=== PATIENT | female | born 1995 | race Caucasian/White ===

== ENCOUNTER 2018-12-17 22:51 | Outpatient (CLI) | payer OTHER ==
[~2018-12-17] VITALS: Ht 165.1 cm; Wt 89.9 kg
[2018-12-17 23:15] VITALS: BP 118/72
[2018-12-17] MEDS ORDERED: HEAL1TAB PO (23:31)
[2018-12-17] MEDS ORDERED: UNIS25TA5 PO (23:31)
[2018-12-17] MEDS ORDERED: PRENTAB9 PO (23:31)
[2018-12-18] MEDS ORDERED: ACETAMINOPHEN 500 MG TAB PO ONE (00:30)
--- NOTE | 2018-12-18 01:36 | IPNPDOC ---
Text Note Date of Service The patient was seen on 12/18/18. NOTE No records available to review. Eliseo is a 23yo at 35+3wks (MARCIA [id number]) presents for RLQ for the last 4 hours. Constant, worse with laughing, 5-7/10. Reports nausea throughout , and had vomiting x3 in the last 3 hrs. She denies headache, vision changes, RUQ pain, vaginal bleeding, LOF, contractions, fevers. She reports drinking 6 -16oz cups of water today. Denies heavy lifting. Reports just PCS'd here and is currently finishing in processing. She has not tried stretches or medications for relieving factors. VS: Reviewed, normotensive, nontachycardic, afebrile GEN: WNWD, NAD, A&O ABD: Soft, Gravid, TTP on the right low quadrant and right flank, negative peritoneal signs, negative heel-jar test, negative psoas test EXT: No edema, ambulating without difficulty FHT: Reactive, 115bpm, moderate variability, + Accelerations, - Decelerations Bena: quiet Tylenol 1000mg PO x1 PO Hydration A/P: SIUP at 35wks with right side pain, some vomiting. Pain stable with Tylenol. PO Challenged performed and patient able to keep down crackers and juice. Do not suspect Appendicitis, Kidney Stones, issues. Suspect musculoskeletal pain. Patient has abdominal/support brace prescription, will call clinic later today to find out where to obtain brace. Discussed strict return and PTL precautions. Encouraged hydration. Discussed FKC. Provided patient with 24hr quarters. She is to follow up in clinic for scheduled appointment on . All questions answered to patient's apparent satisfaction. DO CRISTIAN Velarde Fishbone, I+O VS, Herlinda, I+O Vital Signs Date Time Temp Pulse Resp B/P (MAP) Pulse Ox O2 Delivery O2 Flow Rate FiO2 12/17/18 23:15 99.6 76 18 118/72 (87) BALDOMERO CUBA DO Dec 18, 2018 01:36
== END 2018-12-18 01:31 | disposition home or self-care (01) ==
LOC: M LDO 22:51
PROVIDERS: ATTEND Obstetrics & Gynecology
DX: O26.893 Other specified pregnancy related conditions, third trimester (principal); R10.31 Right lower quadrant pain; O21.2 Late vomiting of pregnancy; Z3A.35 35 weeks gestation of pregnancy

== ENCOUNTER 2019-01-22 03:10 | Inpatient (IN) | payer OTHER ==
[~2019-01-22] VITALS: Ht 165.1 cm; Wt 93.8 kg
[~2019-01-22 03:10] MED LIST: HEAL1TAB PO; PRENTAB9 PO; UNIS25TA5 PO
[2019-01-22 03:21] VITALS: BP 164/92
[2019-01-22] MEDS ORDERED: OXYTOCIN 30 UNITS IN 0.9% NaCl 500ML IV BAG (J2590) As Ordered ONE (03:24)
[2019-01-22 03:43] VITALS: BP 146/65
[2019-01-22 04:17] VITALS: BP 176/77
[2019-01-22 04:19] VITALS: BP 153/83
--- NOTE | 2019-01-22 04:29 | HPEPDOC ---
Obstetrical History & Physical General Date of Admission Jan 22, 2019 at 03:24 Primary Care Physician: Annette Pa MD History of Present Illness OB Considerations: Uncomplicated SPC Hollis is a 23y/o @ 40+4 wks by LMP c/w 12 wk US (MARCIA [id number]) who presented to labor and delivery who had onset of regular contractions at 0130 this morning, and presented to labor and delivery two hours later and found to be 9cm and had SROM of thin meconium with labor check. She proceeded to have an uncomplicated, unmedicated delivery within 5 minutes of labor check. See delivery summary for full details. Chief Complaint: Contractions, term Information Provided By: Patient Age: 23 : 1 Term: 0 Pre-term: 0 Abortions: 1 Livin Care Care: Good Care Dating Final EDC: Jan 18, 2019 Final EDC for Daily Update: Jan 18, 2019 Final EDC by: 1st trimester (US) LMP: Apr 13, 2018 1st Trimester Date: Jul 12, 2018 Weeks + Days: 12.6 Estimated Date of Confinement: Jul 12, 2018 EGA at Admission: 40.4 Antepartum Course Diagnos(e)s Uncomplicated Height (inches): 65 Pre- weight (lbs.): 175 Admission Weight (lbs.): 206 Change in Weight (lbs.): 31 Past Medical History Past Obstetrical History : Past Obstetrical History: Multigravida (Chemical ) Date of Delivery: Jun 09, 2014 GLASS BREAKER History: Spontaneous Past Medical History Medical History Denies Surgical History: Denies/None Family History Significant Family History: Cancer (Mom with kidney cancer) Social History Marital Status: Single Family situation: Spouse/partner home Psychosocial History: No pertinent psych hx * Smoker: non-smoker Alcohol: Denies Drugs: denies Abuse Violence Screening Have you been hit/kicked/slapp: No Have you been sexually assault: No Imunizations Tdap status: current Influenza Status: needs Allergies Coded Allergies: No Known Allergies (Unverified , 12/17/18) Medications Scheduled B6/FA/B12/Co Q10/Herb No.225 (Healthy Heart Complex Tablet) 1 Each Tablet, 1 TAB PO QHS Doxylamine Succinate (Unisom) 25 Mg Tablet, 25 MG PO QHS No.137/Iron/Folic Acd ( Vitamin Tablet) 1 Each Tablet, 1 TAB PO DAILY Physical Examination Physical Examination GENERAL: Alert and oriented times three. BREAST: . ABDOMEN: Gravid and non-tender to touch. HEART RATE: Regular rate and rhythm. LUNGS: Clear to auscultation (CTA). EXTREMITIES: No edema. Vital Signs/I&O VS: BP 164/92 146/65 176/77 153/83 143/81 HR: 53 RR: 18 T: 98.4 I&O- Last 24 Hours up to 6 AM 01/22/19 06:00 Output Total 100 ml Balance -100 ml Pertinent Laboratoy Data Blood Type: B+ RBC Antibody Screen: Negative HIV: Negative Hepatitis B: Negative Hepatitis C: Unknown Rapid Plasma Reagin: Nonreactive Rubella: Immune Varicella: Immune Chlamydia/Gonorrhea: Negative Group B Streptococcus: Negative Glucose Tolerance Test: 97 Anatomy Ultrasound Ultrasound Date: September 01, 2018 Placenta Location: Posterior Normal Anatomy: Yes Placenta Previa: No Estimated Weight (grams): 346 Steroid Therapy Steroid Therapy: No Vaginal Examination Dilation: complete Effacement: 100% Station: +3 Presentation: Cephalic presentation Position: Vertex (occiput) Assessment Variability: Moderate Accelerations: None Decelerations: Prolonged Heart Patterns: Bradycardia Tocometer Contractions: Yes Frequency: every 1-3 min. Duration: greater than 60 seconds Strength: palpated as strong Multi-drug resistant Organism: No history of MDRO Assessment/Plan Assessment 23y/o [id number] s/p uncomplicated . Plan Admit and orient. House Superintendent and consent. Diet: Regular Group B Streptococcus (GBS) negative. -IM Pitocin given -Mild range BPs, will draw CBC, CMP, type and screen -Routine care Labor and Delivery Counseling Patient precipitously delivering. Discussed lacerations and need for repair with absorbable sutures. Discussed possible need for blood transfusion with risks of transfusion reaction or blood borne illness such as HIV/Hepatitis. Patient agrees to transfusion, if indicated. Annette Pa MD Jan 22, 2019 04:29
[2019-01-22] MEDS ORDERED: ACETAMINOPHEN 500 MG TAB PO PRN (04:30)
[2019-01-22] MEDS ORDERED: METHYLERGONOVINE MALEATE 0.2 MG TAB PO PRN (04:30)
[2019-01-22] MEDS ORDERED: RHOGAM 300 MCG (1500 IU) INJ (J2790) IM SCH (04:30)
[2019-01-22] MEDS ORDERED: MEASLES,MUMPS,RUBELLA VACCINE INJ (MMR-II) (90707) SC SCH (04:30)
[2019-01-22] MEDS ORDERED: DIBUCAINE 1% OINTMENT 30GM TOP PRN (04:30)
[2019-01-22] MEDS ORDERED: OXYTOCIN INJ 10 UNITS/ML VIAL (J2590) IM ONE (04:30)
--- NOTE | 2019-01-22 04:40 | DNPDOC ---
[facility] Delivery Note Delivery Note DATE OF DELIVERY: 22Jan2019 PREDELIVERY DIAGNOSIS: 40+4 weeks' gestation and labor. POST DELIVERY DIAGNOSIS: Delivered. PROCEDURE: Spontaneous vaginal delivery. TIE WORKER: Dr. Pa ANESTHESIA: Local only for repair ESTIMATED BLOOD LOSS: 100 mL. FINDINGS: 7 pound 1 ounce 3200 infant, Score 9/9, nuchal cord not present. DELIVERY SUMMARY: 23y/o @ 40+4 wks with onset of contractions at 0130 this morning, presented at 9cm with SROM thin meconium stained fluid with labor check. FHR initially 110, with prolonged deceleration of 4 minutes to 70s just prior to delivery. Within 5 minutes of labor check, I entered the room with vertex parting the labia. Shortly thereafter, infant delivered OA, restituted ROT. The left anterior shoulder delivered with downward tractions and right posterior shoulder delivered with upward guidance. The body followed easily. vigorous with spontaneous cry, and was placed to maternal abdomen. Cord blood collected per routine. Placenta delivered intact, 3vc, central insertion. 10u IM Pitocin were administered as patient did not have an IV. Systematic examination of the perineum was notable for 1st degree perineal laceration and bilateral labial lacerations. 1% lidocaine without epinephrine (10cc) was administered for local anesthesia. Repair completed with 3-0 Vicryl in the usual fashion. Mother and were stable when provider left the room. EBL 100cc. Annette Pa MD Jan 22, 2019 04:40
[2019-01-22] MEDS: IBUPROFEN 800 MG TAB PO PRN ×2 (04:54→20:49)
[2019-01-22 05:16] LABS: HEMATOCRIT 35.4 % (36.0-47.0); HEMOGLOBIN 12.6 g/dl (12.0-15.5); MEAN CORPUSCULAR HEMOGLOBIN 33.4 pg (27.0-33.0); MEAN CORPUSCULAR HGB CONC 35.6 g/dl (32.0-36.5); MEAN CORPUSCULAR VOLUME 93.9 fl (80.0-96.0); PLATELET COUNT, AUTOMATED 214 10^3/uL (150-450); RED BLOOD COUNT 3.77 10^6/uL (4.00-5.40); WHITE BLOOD COUNT 9.8 10^3/uL (4.0-10.0)
[2019-01-22 05:46] LABS: ALT/SGPT 13 U/L (12-78); BILIRUBIN,TOTAL 0.3 MG/DL (0.2-1.0); GLOMERULAR FILTRATION RATE > 60.0 (>60); LDH LACTATE DEHYDROGENASE 209 U/L (84-246); URIC ACID 4.4 MG/DL (2.6-6.0)
[2019-01-22] MEDS: PRENATAL VITAMINS CHEWABLE TABLET PO SCH (09:46)
[2019-01-22 11:00] LABS: HEPATITIS B SURFACE ANTIGEN NEGATIVE (NEGATIVE)
[2019-01-22] MEDS ORDERED: LIDOCAINE 1% MDV 20ML VIAL As Ordered ONE (11:17)
[2019-01-22 18:00] VITALS: BP 139/84
[2019-01-22] MEDS: DOCUSATE SODIUM 100 MG CAP PO PRN (20:12)
[2019-01-23 06:30] VITALS: BP 137/69
--- NOTE | 2019-01-23 07:58 | IPNPDOC ---
Progress Note Date of Service: Jan 23, 2019 Day#: 1 Progress Note SUBJECT: patient is a 23 yo [id number] s/p ppd#1. She has no concerns this am. She has been ambulating, voiding spontaneously without issue and tolerating regular diet. Breast feeding without issue. Reports lochia is like a normal period. patient is undecided on contraceptive options at this point. OBJECTIVE: VITAL SIGNS: Within normal limits, afebrile. Alert and oriented times three. Abdomen: Fundus firm at U-2. Soft, NTTP. LE: no edema/erythema/tenderness A/P: ppd #1, doing well. contraceptive counseling. encourage bf. instruction to pick pack worker medications at [facility]. anticipate d/c home PPD #2. VS, I&O, 24H, Fishbone Vital Signs/I&O Vital Signs Date Time Temp Pulse Resp B/P (MAP) Pulse Ox O2 Delivery O2 Flow Rate FiO2 01/23/19 06:30 97.4 53 18 137/69 (91) 98 Laboratory Data 24H LABS Laboratory Tests 2 01/22/19 21:05: Serology Scanned Report Hepatitis B Testing PAOLO STEVENS DO Jan 23, 2019 07:58
[2019-01-23] MEDS: PRENATAL VITAMINS CHEWABLE TABLET PO SCH (09:46)
[2019-01-23] MEDS: ACETAMINOPHEN TAB 650MG DOSE (2X325MG) PO PRN ×2 (13:47→19:33)
[2019-01-23] MEDS: IBUPROFEN 800 MG TAB PO PRN (13:47)
[2019-01-23 18:01] VITALS: BP 140/81
[2019-01-23] MEDS: DOCUSATE SODIUM 100 MG CAP PO PRN (19:45)
[2019-01-23] MEDS: IBUPROFEN 600 MG TAB PO PRN (21:04)
[2019-01-24] MEDS: ACETAMINOPHEN TAB 650MG DOSE (2X325MG) PO PRN (03:43)
[2019-01-24 06:00] VITALS: BP 140/66
[2019-01-24] MEDS: IBUPROFEN 600 MG TAB PO PRN (06:01)
[2019-01-24] MEDS ORDERED: COLA100C5 PO (07:15)
[2019-01-24] MEDS ORDERED: IBUP80TA PO (07:15)
[2019-01-24] MEDS ORDERED: ACET-683 PO (07:15)
[2019-01-24] MEDS ORDERED: DIBU10OI TOP (07:15)
[2019-01-24] MEDS: PRENATAL VITAMINS CHEWABLE TABLET PO SCH (07:42)
[2019-01-24] MEDS ORDERED: INFLUENZA QUADRIVALENT PF VACCINE 0.5ML SYRINGE (90686) IM ONE (09:00)
--- NOTE | 2019-01-24 13:04 | DSES ---
DATE OF ADMISSION: 01/22/2019 DATE OF DISCHARGE: 01/24/2019 This lady is a 23-year-old 2 now para 1 admitted at 40 weeks and 4 days with contractions, had a precipitous delivery, live female infant weighing 7 pounds 1 ounce, 3200 grams, scores of nine and nine at 1 and 5 minutes respectively. She had a small first-degree tear which was repaired with local anesthetic. On her first day we discussed phlebitis, cystitis, mastitis, endometritis and cellulitis, diet, exercise pain management, perineal, breast and wound care. She is undecided yet as regarding control. Her admitting hemoglobin was 12.6, hematocrit 34.5 and platelets were 214. Her vital signs on discharge her blood pressure was 140/66, respirations 16, pulse 77, temperature 98.3. The rest of the examination unremarkable. Normocephalic, atraumatic. Neck full range of motion. Pupils equal and reactive to light. Distal pulses symmetric. No evidence of DVT, PE or superficial phlebitis. Chest is clear bilaterally bases. No wheezes or rhonchi. No CVA tenderness. Abdomen soft, uterus 2 below. Lochia is moderate. Four quadrant bowel sounds are noted. She has no incontinency, urgency or frequency. No nausea, vomiting, diarrhea or constipation. No complaints of shortness of breath, dyspnea on exertion and no chest pain. In summary, we have a term gestation, rapid delivery at 40 and 4 weeks of gestation. Both mother and baby will be discharged to followup in 6 weeks for checkup at [facility]. edited: 01/25/2019 0728 lisette SHIPLEY
== END 2019-01-24 12:45 | disposition home or self-care (01) | DRG 807 ==
LOC: M LDO 03:10 → M LDI 03:24 → M OBS 05:58
PROVIDERS: ADMIT Obstetrics & Gynecology; ATTEND Obstetrics & Gynecology
PROC: 10E0XZZ Delivery of Products of Conception, External Approach (ICD-10-PCS; principal; 2019-01-22)
PROC: 0HQ9XZZ Repair Perineum Skin, External Approach (ICD-10-PCS; 2019-01-22)
DX: O62.3 Precipitate labor (principal); Z37.0 Single live birth; Z3A.40 40 weeks gestation of pregnancy; O48.0 Post-term pregnancy; O70.0 First degree perineal laceration during delivery; O77.0 Labor and delivery complicated by meconium in amniotic fluid; O76 Abnormality in fetal heart rate and rhythm complicating labor and delivery

== ENCOUNTER 2019-05-14 04:25 | Emergency (ER) | payer OTHER ==
[~2019-05-14] VITALS: Ht 165.1 cm; Wt 73.5 kg
[~2019-05-14 04:25] MED LIST changes: +ACET-683 PO; +COLA100C5 PO; +DIBU10OI TOP; +IBUP80TA PO
[2019-05-14] MEDS ORDERED: CALC500C16 PO (04:34)
[2019-05-14] MEDS ORDERED: DICL1GEL3 TOP (04:34)
[2019-05-14] MEDS ORDERED: NS 1,000 ML IV ONE ×2 (05:00→05:30)
[2019-05-14] MEDS ORDERED: METOCLOPRAMIDE INJ 10MG/2ML VIAL (J2765) IV ONE (05:00)
[2019-05-14 05:10] LABS: BASO % 0.1 % (0.0-1.0); EOS % 0.1 % (0.0-3.0); HEMATOCRIT 51.6 % (36.0-47.0); HEMOGLOBIN 17.3 g/dl (12.0-15.5); LYMPH # 0.5 10^3/uL (1.5-5.0); LYMPH % 5.1 % (24.0-44.0); MEAN CORPUSCULAR HEMOGLOBIN 30.2 pg (27.0-33.0); MEAN CORPUSCULAR HGB CONC 33.5 g/dl (32.0-36.5); MEAN CORPUSCULAR VOLUME 90.2 fl (80.0-96.0); MONO # 0.3 10^3/uL (0.0-0.8); MONO % 3.5 % (0.0-5.0); NEUTROPHILS # 8.4 10^3/uL (1.5-8.5); PLATELET COUNT, AUTOMATED 287 10^3/uL (150-450); RED BLOOD COUNT 5.72 10^6/uL (4.00-5.40); WHITE BLOOD COUNT 9.3 10^3/uL (4.0-10.0)
[2019-05-14 05:52] LABS: BILIRUBIN,DIRECT 0.3 MG/DL (0.0-0.2); BILIRUBIN,TOTAL 0.9 MG/DL (0.2-1.0)
[2019-05-14] MEDS ORDERED: REGL10TA6 PO (06:33)
[2019-05-14 07:06] VITALS: BP 121/73
== END 2019-05-14 07:06 | disposition home or self-care (01) ==
LOC: M ED 04:25
DX: K52.9 Noninfective gastroenteritis and colitis, unspecified (principal)
CPT/HCPCS: 80047; 80076; 83690; 84702; 85025; 96361; 96374; 99284; J2765

== ENCOUNTER → 2020-12-08 | Outpatient (CLI) | payer OTHER ==
[~2020-12-08] MED LIST changes: +CALC500C16 PO; -DIBU10OI TOP; +DIBU28OI2 TOP; +DICL1GEL3 TOP; +REGL10TA6 PO
--- NOTE | 2020-12-08 12:12 | REP ---
INDICATION: GROWTH, CHRONIC HTN. COMPARISON: None. TECHNIQUE: Real-time sonographic evaluation of the gravid uterus performed. FINDINGS: Estimated gestational age is28 weeks 0 days, EDC 03/02/2021. Today's measurements indicate appropriate growth. Presentation: Cephalic Placenta anterior to the left, grade 0, without evidence of placenta previa. heart rate is recorded at 143 beats per minute. Amniotic fluid is subjectively normal. DAYANA 11.0, normal 9.4-22.8. Biophysical profile score 8/8. SD ratio umbilical artery 2.50, normal 2.09-4.36. RI 0.60, normal 0.55-0.78. Closed cervical length is measured at 3.9 cm. Biometry chart: BPD: 75 mm, 30 weeks 1 days, 82nd percentile. HC: 268 mm, 29 weeks 2 days, 76th percentile AC: 241 mm, 28 weeks 3 days, 58th percentile Femur length: 57 mm, 30 weeks 0 days, 92nd percentile HC to AC ratio: 1.11, normal range 0.99-1.18. Estimated weight: 1341g, 80th percentile. anatomy: Cranium: Grossly normal Lateral Ventricles/Choroid Plexus: Not well seen due to position Posterior Fossa/Cerebellum: Not well seen due to position Nose/lips/profile: Grossly normal, facial profile not well seen due to position Four chamber heart: Grossly normal Right ventricular outflow tract: Not well seen due to position. Left ventricular outflow tract: Grossly normal Left-sided stomach: Grossly normal Kidneys: Grossly normal Bladder: Grossly normal Cord Insertion: Grossly normal 3 vessel cord: Grossly normal Spine: Grossly normal IMPRESSION: Viable single intrauterine gestation as above. <Electronically signed by Paul Holguin > 12/08/20 0150
== END ==
LOC: M RAD 10:57
PROVIDERS: ATTEND Registered Nurse Maternal Newborn
DX: O13.3 Gestational [pregnancy-induced] hypertension without significant proteinuria, third trimester (principal); Z3A.28 28 weeks gestation of pregnancy

== ENCOUNTER 2021-01-05 11:09 | Outpatient (CLI) | payer OTHER ==
[~2021-01-05] VITALS: Ht 195.6 cm; Wt 85.4 kg
[2021-01-05 11:38] VITALS: BP 118/65
[2021-01-05] MEDS ORDERED: HOME MED LIST COMPLETE! XX SCH ×2 (11:50)
[2021-01-05] MEDS ORDERED: ASPI81CH33 PO (11:53)
[2021-01-05 12:26] VITALS: BP 111/79
--- NOTE | 2021-01-05 12:57 | IPNPDOC ---
Text Note Date of Service The patient was seen on 01/05/21. NOTE Chief Complaint: Ms. Hollis is a 25 year old G3 P 1 at 32+0 weeks gestation presenting to L&D triage for prolonged monitoring and cervical recheck after being assessed in clinic and found to have dilation of 1cm. Patient presents: alone HPI: Patient seen in clinic today for routine OB appointment and had concerns about discharge. Clinic provider performed speculum exam and noted cervical dilation. SVE in clinic at 1030 was /-3 with CL 2.6cm on TVUS with 2.3cm with Valsalva. Here in triage for re-check 2hrs after initial exam. Pt denies any cramping, contractions, LOF, vaginal bleeding. Reporting good movement. Pt reports clinic provider ordered her treatment for BV. Objective: VS: BP111/79, P74 General: Alert. Well-appearing, in no acute distress PSYCH: Well groomed. Appropriate affect, normal mood. Conversed easily. Neuro: Oriented to time, place, and person. RESP: Unlabored breathing. ABD: Soft, non-tender. No swelling, guarding, mass or lumps noted on palpation. MSK: legs without edema bilaterally. Normal mvmt all extremities. Steady gait. Lexie from a seated position without assistance. Obstetrical: FHR: 135 with moderate variability, accelerations present, no decls. Initially, mild uterine irritability noted, pt denied feeling. SVE re-cechk: /-3 at 1230 Pelvic exam: External Genitalia showed no abnormalities, without lesions [employer] Commerce Developer present for exam: L&D RN A/P 25yo at 32+0 wks gestation evaluated in L&D triage for cervical re-check following incidental finding of dilation in clinic. Hx CHTN: VSS and normal Benign physical exam Reactive NST, reassuring SVE: no price changer 2 hours. Minimal irritability resolved after about 1hr on monitor. Plan: Educated on strict pre-term labor precautions and warning signs. Follow up on [facility] [facility] clinic as previously scheduled. VS,Fishbone, I+O VS, Fishbone, I+O Vital Signs Date Time Temp Pulse Resp B/P (MAP) Pulse Ox O2 Delivery O2 Flow Rate FiO2 01/05/21 12:26 74 18 111/79 (90) 01/05/21 11:38 98.2 CARLOS ALMANZAR CNM Jan 05, 2021 12:57
== END 2021-01-05 12:49 | disposition home or self-care (01) ==
LOC: M LDO 11:09
PROVIDERS: ATTEND Advanced Practice Midwife
DX: O60.03 Preterm labor without delivery, third trimester (principal); Z3A.32 32 weeks gestation of pregnancy; Z87.59 Personal history of other complications of pregnancy, childbirth and the puerperium
CPT/HCPCS: 59025; G0378; G0463

== ENCOUNTER → 2021-01-07 | Outpatient (CLI) | payer OTHER ==
[~2021-01-07] MED LIST changes: +ASPI81CH33 PO
--- NOTE | 2021-01-08 05:01 | REP ---
INDICATION: PREG, GROWTH - CHR HT COMPARISON: 12/08/2020 TECHNIQUE: Transabdominal obstetrical ultrasound with color Doppler evaluation. FINDINGS: Examination demonstrates a single live intrauterine in cephalic presentation. motion is identified by technologist. Placenta is noted anterior and grade 2 without evidence for placenta previa or abruption. Amniotic fluid volume is normal. Cervix measures 3.4 cm in length and appears closed.. Selected gestational age: Thirty-two weeks 2 days with MARCIA 03/02/2021. Gestational age by current measurements 33 weeks 2 days with MARCIA 02/23/2021. FHR equals 153 beats per minute. BPD: 8.6 cm at 34 weeks 6 days HC: 30.8 cm at 34 weeks 2 days AC: 28.7 cm at 32 weeks 5 days FL: 6.4 cm at there is 33 weeks 0 days HL: 5.4 cm at 31 weeks 4 days HC/AC: 1.07 Estimated weight 2127 grams (65thpercentile). DAYANA: 10.9 cm Umbilical artery SD ratio: 2.53 IMPRESSION: Single live intrauterine in cephalic presentation demonstrating appropriate estimated weight and growth. Amniotic fluid index normal. Anatomical assessment is limited but without obvious abnormality. <Electronically signed by Juancho Bueno > 01/08/21 [id number]
== END ==
LOC: M RAD 15:17
PROVIDERS: ATTEND Obstetrics & Gynecology
DX: Z36.9 Encounter for antenatal screening, unspecified (principal); O13.3 Gestational [pregnancy-induced] hypertension without significant proteinuria, third trimester; Z3A.33 33 weeks gestation of pregnancy

== ENCOUNTER 2021-02-23 10:22 | Outpatient (CLI) | payer OTHER ==
[~2021-02-23] VITALS: Ht 165.1 cm; Wt 88.3 kg
[2021-02-23 10:39] VITALS: BP 131/82
[2021-02-23 11:14] VITALS: BP 147/76
[2021-02-23 12:10] VITALS: BP 123/82
--- NOTE | 2021-02-23 12:18 | REP ---
INDICATION: Questionable NST. Please assess BPP to include DAYANA. COMPARISON: 01/07/2021 TECHNIQUE: Transabdominal obstetrical ultrasound with color Doppler evaluation. FINDINGS: Examination demonstrates a single live intrauterine in cephalic presentation. motion is identified by technologist. Placenta is noted right lateral and grade 2 without evidence for placenta previa or abruption. Amniotic fluid volume is normal. Cervix appears closed.. Selected gestational age: 39 weeks 0 days with MARCIA 03/02/2021. FHR equals 145 beats per minute. DAYANA: 10.0 cm. Biophysical profile score: 8/8. Umbilical artery SD ratio: 3.15 (1.51-3.29) IMPRESSION: Single live advanced gestation in cephalic presentation. Biophysical profile score normal. <Electronically signed by Juancho Bueno > 02/23/21 [id number]
--- NOTE | 2021-02-23 13:33 | IPNPDOC ---
Text Note Date of Service The patient was seen on 02/23/21. NOTE 25 yo at 39+0 weeks today presented to L&D as a provider ordered eval for questionable tachycardia on routine monitoring. Ms. Hollis has apparent cHTN, though this appears to be questionable. She last had an elevated BP on [id number] (90 diastolic). She has had 4 mild elevations upon records review going back to 2016. She has been undergoing APFT twice weekly for this reason. Today on monitoring baseline appeared to be in the 170s, but with moderate variability. She was sent to L&D for evaluation. She has no concerns. She denies any bleeding, pelvic pain, contractions, or leakage of fluid. She endorses excellent movement. Chaperoned by L&D RN Vitals - VSS, afebrile, isolated systolic BP of 147, multiple normal readings before and after General - Sitting up in bed, pleasant and conversant, NAD Abdomen - Gravid uterus, no fundal tenderness Pelvic - Refused cervical exam Extremities - No edema FHR tracing - Cat I throughout monitoring. Numerous accels, no decels. Instance of maternal heart rate recording when patient sat up. Ctx noted on toco. Formal BPP in radiology - 11/16, with DAYANA of 10.0 FHR Cat I throughout prolonged monitoring and NST 11/16. Baseline had changed significantly from NST in office. I reviewed the office tracing and there was no clear baseline. Baseline established up on L&D to about 140 bpm. There were numerous accels to the 170s. Shea reported her baby was extremely active down in the office. She reports baby is still very active, but has 'calmed down' since being in the office. The risk of in one week after a 10/10 BPP (or even 11/16 with NST omitted) is ~0.4-0.6 / 1000. I did offer IOL today if Shea was more comfortable with that but she adamantly declined. She strongly desires to avoid an IOL if at all possible. She agreed to come back to the office on Tuesday at 1300 for another NST, Blood pressure check, and appointment with me. She understands to return to care sooner should she experience bleeding, contractions, leakage of fluid, decreased movement, or any other urgent concerns. All questions answered. 60 minutes Herlinda Pantoja, I+O VS, Herlinda, I+O Vital Signs Date Time Temp Pulse Resp B/P (MAP) Pulse Ox O2 Delivery O2 Flow Rate FiO2 02/23/21 12:10 93 16 123/82 (96) 02/23/21 10:39 98.5 99 Room Air RUSS CARVALHO DO Feb 23, 2021 13:33
== END 2021-02-23 12:55 | disposition home or self-care (01) ==
LOC: M LDO 10:22
PROVIDERS: ATTEND Obstetrics & Gynecology
DX: O26.893 Other specified pregnancy related conditions, third trimester (principal); O76 Abnormality in fetal heart rate and rhythm complicating labor and delivery; Z3A.39 39 weeks gestation of pregnancy
CPT/HCPCS: 59025; 76819; G0378; G0463

== ENCOUNTER 2021-03-04 09:24 | Inpatient (IN) | payer OTHER ==
[~2021-03-04] VITALS: Ht 165.1 cm; Wt 89.2 kg
[2021-03-04] VITALS (8 sets, daily range): BP systolic 118–142; BP diastolic 59–88
--- OUTSIDE RECORDS SUMMARY | 2021-03-04 10:35 | CCD ---
Author Author [facility] Organization [facility] Address Unknown Phone Unavailable Care Team Providers Care Molded Goods Inspector Trimmer Name Role Phone Spencer, Vivian WHITE KID BUFFER Unavailable Unavailable Spencer, Vivian WHITE KID BUFFER Unavailable Unavailable Spencer, Vivian WHITE KID BUFFER Unavailable Unavailable Spencer, Vivian WHITE KID BUFFER Unavailable Unavailable Spencer, Vivian WHITE KID BUFFER Unavailable Unavailable Spencer, Vivian WHITE KID BUFFER Unavailable Unavailable Spencer, Vivian WHITE KID BUFFER Unavailable Unavailable Spencer, Vivian WHITE KID BUFFER Unavailable Unavailable Spencer, Vivian WHITE KID BUFFER Unavailable Unavailable Spencer, Vivian WHITE KID BUFFER Unavailable Unavailable Spencer, Vivian WHITE KID BUFFER Unavailable Unavailable Spencer, Vivian WHITE KID BUFFER Unavailable Unavailable Spencer, Vivian WHITE KID BUFFER Unavailable Unavailable Spencer, Vivian WHITE KID BUFFER Unavailable Unavailable Spencer, Vivian WHITE KID BUFFER Unavailable Unavailable Spencer, Vivian WHITE KID BUFFER Unavailable Unavailable Spencer, Vivian WHITE KID BUFFER Unavailable Unavailable Spencer, Vivian WHITE KID BUFFER Unavailable Unavailable Spencer, Vivian WHITE KID BUFFER Unavailable Unavailable Spencer, Vivian WHITE KID BUFFER Unavailable Unavailable Spencer, Vivian WHITE KID BUFFER Unavailable Unavailable Spencer, Vivian WHITE KID BUFFER Unavailable Unavailable Spencer, Vivian WHITE KID BUFFER Unavailable Unavailable Spencer, Vivian WHITE KID BUFFER Unavailable Unavailable Spencer, Vivian WHITE KID BUFFER Unavailable Unavailable Spencer, Vivian WHITE KID BUFFER Unavailable Unavailable Spencer, Vivian WHITE KID BUFFER Unavailable Unavailable Spencer, Vivian WHITE KID BUFFER Unavailable Unavailable Spencer, Vivian WHITE KID BUFFER Unavailable Unavailable Spencer, Vivian WHITE KID BUFFER Unavailable Unavailable Spencer, Vivian WHITE KID BUFFER Unavailable Unavailable Spencer, Vivian WHITE KID BUFFER Unavailable Unavailable Spencer, Vivian WHITE KID BUFFER Unavailable Unavailable Spencer, Vivian WHITE KID BUFFER Unavailable Unavailable Spencer, Vivian WHITE KID BUFFER Unavailable Unavailable Spencer, Vivian WHITE KID BUFFER Unavailable Unavailable Re-disclosure Warning The records that you are about to access may contain information from federally-assisted alcohol or drug abuse programs. If such information is present, then the following federally mandated warning applies: This information has been disclosed to you from records protected by federal confidentiality rules (42 CFR part 2). The federal rules prohibit you from making any further disclosure of this information unless further disclosure is expressly permitted by the written consent of the person to whom it pertains or as otherwise permitted by 42 CFR part 2. A general authorization for the release of medical or other information is NOT sufficient for this purpose. The Federal rules restrict any use of the information to criminally investigate or prosecute any alcohol or drug abuse patient.The records that you are about to access may contain highly sensitive health information, the redisclosure of which is protected by Article 27-F of the [place] State Public Health law. If you continue you may have access to information: Regarding HIV / AIDS; Provided by facilities licensed or operated by the [facility] Office of Mental Health; or Provided by the [facility] Office for People With Developmental Disabilities. If such information is present, then the following [facility] mandated warning applies: This information has been disclosed to you from confidential records which are protected by state law. State law prohibits you from making any further disclosure of this information without the specific written consent of the person to whom it pertains, or as otherwise permitted by law. Any unauthorized further disclosure in violation of state law may result in a fine or mcc sentence or both. A general authorization for the release of medical or other information is NOT sufficient authorization for further disc losure. Encounters Encounter Providers Location Date Indications Data Source(s ) Outpatient Attender: Emiliana Alvarez [facility] Main Office 10/17/2020 09:30:00 AM EDT [facility] ([facility]) Immunizations Vaccine Date Status Description Data Source(s) COVID-19 VACCINE Pfizer 05/19/2020 12:00:00 AM EST completed [facility] Vaccine Series Complete: NOThis Data was Submitted to [facility] Via [employer]. Medications No Information Insurance Providers Payer name Policy type / Coverage type Policy ID Covered constitution party ID Covered constitution party's relationship to bull Policy Bull Plan Information [facility] [id number] Problems, Conditions, and Diagnoses No Information Surgeries/Procedures Procedure Description Date Indications Data Source(s) OFFICE CONSULTATION NEW/ESTAB PATIENT 60 MIN 12:00:00 AM EDT [facility] ([facility]) Results ID Date Data Source [id number] 10/17/2020 09:39:00 AM EDT [facility] ([facility]) Name Value Range Interpretation Code Description Data Radha rce(s) Supporting Document(s) Laboratory test finding (navigational concept) Laboratory test result [facility]) No further treatment necessary Nuclear IgG Ab [Units/volume] in Serum by Flow cytomet ry (FC) Laboratory test result [facility] ([facility]) No further treatment necessary ID Date Data Source [id number] 10/17/2020 09:39:00 AM EDT [facility] ([facility]) Name Value Range Interpretation Code Description Data Radha rce(s) Supporting Document(s) Leukocytes [#/volume] in Blood by Automated count 6.3 x10E3/uL 3.4-10 .8 [facility] ([facility]) No further treatment necessary Erythrocytes [#/volume] in Blood by Automated count 4.22 x10E6/uL 3.7 7-5.28 [facility] ([facility]) No further treatment necessary Hemoglobin [Mass/volume] in Blood 14.1 g/dL 11.1-15.9 [facility] ([facility]) No further treatment necessary Erythrocyte mean corpuscular hemoglobin [Entitic mass] by Automated count 33.4 pg 26.6-33.0 Above high normal [facility] ([facility]) No further treatment necessary Erythrocyte mean corpuscular volume [Entitic volume] by Auto mated count 96 fL 79-97 [facility] ([facility]) No further treatment necessary Hematocrit [Volume Fraction] of Blood by Automated count 40.4 % 3 4.0-46.6 [facility] ([facility]) No further treatment necessary Platelets [#/volume] in Blood by Automated count 282 x10E3/uL 150-450 [facility] ([facility]) No further treatment necessary Erythrocyte mean corpuscular hemoglobin concentration [Mass/volume] by Automated count 34.9 g/dL 31.5-35.7 [facility] ([facility]) No further treatment necessary Erythrocyte distribution width [Ratio] by Automated count 12.2 % 11.7-15.4 [facility] ([facility]) No further treatment necessary Neutrophils/100 leukocytes in Blood by Automated count 57 % [facility] ([facility]) No further treatment necessary Lymphocytes/100 leukocytes in Blood by Automated count 31 % [facility] ([facility]) No further treatment necessary Monocytes/100 leukocytes in Blood by Automated count 10 % [facility] ([facility]) No further treatment necessary Basophils/100 leukocytes in Blood by Automated count 0 % [facility] ([facility]) No further treatment necessary Eosinophils/100 leukocytes in Blood by Automated count 1 % [facility] ([facility]) No further treatment necessary Immature cells [#/volume] in Blood Laboratory test result [facility] ([facility]) No further treatment necessary Neutrophils [#/volume] in Blood by Automated count 3.6 x10E3/uL 1.4-7 .0 [facility] ([facility]) No further treatment necessary Lymphocytes [#/volume] in Blood 2.0 x10E3/uL 0.7-3.1 [facility] ([facility]) No further treatment necessary Monocytes [#/volume] in Blood 0.6 x10E3/uL 0.1-0.9 [facility] ([facility]) No further treatment necessary Eosinophils [#/volume] in Blood by Automated count 0.1 x10E3/uL 0.0-0 .4 [facility] ([facility]) No further treatment necessary Basophils [#/volume] in Blood by Automated count 0.0 x10E3/uL 0.0-0.2 [facility] ([facility]) No further treatment necessary Immature granulocytes/100 leukocytes in Blood by Automated count 1 % [facility] ([facility]) No further treatment necessary Immature granulocytes [#/volume] in Blood by Automated count 0.0 x10E3/uL 0.0-0.1 [facility]) No further treatment necessary Nucleated erythrocytes/100 leukocytes [Ratio] in Blood by Automated count Laboratory test result [facility] ([facility]) No further treatment necessary Morphology [Interpretation] in Blood Narrative Laboratory test result [facility] ([facility]) No further treatment necessary ID Date Data Source [id number] 10/17/2020 09:39:[address] [facility] ([facility]) Name Value Range Interpretation Code Description Data Radha rce(s) Supporting Document(s) Thyroxine (T4) [Mass/volume] in Serum or Plasma 10.6 ug/dL 4.5-12.0 [facility] ([facility]) No further treatment necessary Thyrotropin [Units/volume] in Serum or Plasma by Detec tion limit <= 0.005 mIU/L 1.410 uIU/mL 0.450-4.500 [facility] No further treatment necessary Procedure Social History No Information Vital Signs ID Date Data Source UNK Name Value Range Interpretation Code Description Data Source(s) Systolic blood pressure 126 mm[Hg] 126 mm[Hg] [facility] Diastolic blood pressure 64 mm[Hg] 64 mm[Hg] [facility] ([facility]) Body weight 175.00 [lb_av] 175.00 [lb_av] [facility] ([facility]) Respiratory rate 18 /min 18 /min [facility] ( [facility])
--- NOTE | 2021-03-04 10:48 | HPEPDOC ---
Obstetrical History & Physical General Date of Admission 03/04/21 History of Present Illness 25yo at 40+2 presenting for induction of labor for category II tracing during NST in clinic. Denies vaginal bleeding, loss of fluid, regular contractions. Endorses positive movement. 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 Past Medical History Medical History transient thyrotoxicosis CHTN Surgical History: Denies/None Social History Marital Status: Family situation: Spouse/partner home Psychosocial History: No pertinent psych hx * Smoker: non-smoker Alcohol: Denies Drugs: denies Abuse Violence Screening Have you been hit/kicked/slapp: No Have you been sexually assault: No Imunizations Tdap status: current Influenza Status: current Allergies Coded Allergies: No Known Allergies (Unverified , 01/22/19) Medications Scheduled Aspirin (Aspirin) 81 Mg Tab.chew, 81 MG PO DAILY for pain No.137/Iron/Folic Acd ( Vitamin Tablet) 1 Each Tablet, 1 TAB PO DAILY Physical Examination Physical Examination GENERAL: Alert and oriented times three. BREAST: . ABDOMEN: Gravid and non-tender to touch. FETUS: Is vertex by ultrasound HEART RATE: Regular rate LUNGS: nonlabored breathing EXTREMITIES: No edema. Vital Signs/I&O Vital Signs Date Time Temp Pulse Resp B/P (MAP) Pulse Ox O2 Delivery O2 Flow Rate FiO2 03/04/21 09:57 99.4 69 18 137/84 (101) Pertinent Laboratoy Data Blood Type: B+ RBC Antibody Screen: Negative HIV: Negative Hepatitis B: Negative Rapid Plasma Reagin: Nonreactive Rubella: Immune Varicella: Immune Chlamydia/Gonorrhea: Negative Group B Streptococcus: Negative Cystic Fibrosis: Negative Glucose Tolerance Test: 109 Anatomy Ultrasound Ultrasound Date: Oct 14, 2020 Placenta Location: Anterior Normal Anatomy: Yes Placenta Previa: No Steroid Therapy Steroid Therapy: No Assessment Heart Rate (FHR): 150 Variability: Moderate Accelerations: Positive Decelerations: Variable (rare) Tocometer Frequency: irregular Multi-drug resistant Organism: No history of MDRO Assessment/Plan Assessment Shea Hollis is a 25-year-old at 402 weeks by 6-week ultrasound. Presents to Labor and Delivery (L&D) for IOL for category II NST in clinic. Cephalic presentation, GBS negative. Will revaluate cervix prior to induction. Currently waiting for labor Bed. EFW 3600g by palpation. tracing currently category I. Plan Admit and orient. Entry Level Civil Engineer and consent. Diet: regular until induction commences. Group B Streptococcus (GBS) [negative]. Labs and intravenous (IV) per unit protocol. Counseled on Pitocin and induction of labor (IOL). Lactated Ringers (LR): at 125 mL/hr. Anticipate [normal spontaneous delivery ()]. C-S as appropriate. Labor and Delivery Counseling We discussed the risks of vaginal delivery including but not limited to infection, hmorrhage, described response to hemorrhage in detail with inter ventions including hysterectomy as life-saving measure. Reveiwed r/b/a to blood transfusion risk of infectious transmission. Reviewed risk of , monitoring in labor, use of cytotec, hernandez bulb, pitocin and amniotomy. DIscussed forceps, vacuum and response to shoulder dystocia with possible intentional fracture of bones to facilitate delivery. She indicated unders tanding, desires to proceed and all questions were answered. DO MAX Nieto BRADLEY J. DO Mar 04, 2021 10:48
[2021-03-04] MEDS ORDERED: LR 1,000 ML IV SCH ×2 (10:50→23:40)
[2021-03-04 16:46] LABS: HEMATOCRIT 38.5 % (36.0-47.0); HEMOGLOBIN 13.6 g/dl (12.0-15.5); MEAN CORPUSCULAR HEMOGLOBIN 32.9 pg (27.0-33.0); MEAN CORPUSCULAR HGB CONC 35.3 g/dl (32.0-36.5); MEAN CORPUSCULAR VOLUME 93.2 fl (80.0-96.0); PLATELET COUNT, AUTOMATED 210 10^3/uL (150-450); RED BLOOD COUNT 4.13 10^6/uL (4.00-5.40)
[2021-03-04] MEDS ORDERED: HOME MED LIST COMPLETE! XX SCH (17:10)
[2021-03-04] MEDS ORDERED: OXYTOCIN DRIP 30 UNITS in IV 1 EA IV SCH ×5 (17:35→23:40)
--- NOTE | 2021-03-04 17:40 | IPNPDOC ---
Obstetrical Progress Note Date of Service Mar 04, 2021 Subjective Patient comfortable, denies complaints at this time. Objective Vital Signs Date Time Temp Pulse Resp B/P (MAP) Pulse Ox O2 Delivery O2 Flow Rate FiO2 03/04/21 10:43 73 18 140/88 (105) 03/04/21 09:57 99.4 Assessment Heart Rate (FHR): 150 Variability: Moderate Accelerations: Positive Decelerations: Variable, Intermittent Tocometer Contractions: Yes Frequency: irregular Sterile Vaginal Examination Dilation: 3 cm Effacement (%): 50% Station: -2 Cervical Consistency: Soft Cervical Position: Middle Postion/Presentation: Cephalic presentation Assessment and Plan Age: 25 : 3 Term: 0 Pre-term: 1 Abortions: 1 Livin Weeks & Days 40+2 Status: Reassuring Group B Streptococcus: Negative Anticipate: Vaginal Delivery Additional Comments will start induction with pitocin she would like to eat before and this is reasonable routine intrapartum care reevaluate labor in 4-6 hours or prn CAIO SANTANA DO Mar 04, 2021 17:40
--- NOTE | 2021-03-04 21:11 | IPNPDOC ---
Obstetrical Progress Note Date of Service Mar 04, 2021 Subjective Patient comfortable with contractions. Entered room to discuss tracing, she was having recurrent variable/late decels. Objective Vital Signs Date Time Temp Pulse Resp B/P (MAP) Pulse Ox O2 Delivery O2 Flow Rate FiO2 03/04/21 17:42 97.4 64 18 118/74 (89) Assessment Heart Rate (FHR): 150 Variability: Moderate Accelerations: Positive Decelerations: None Heart Rate Tracing: Category I Tocometer Contractions: Yes Frequency: regular, every 3-7 min. Sterile Vaginal Examination Dilation: 4 cm Effacement (%): 90% Station: -2 Cervical Consistency: Soft Cervical Position: Middle Postion/Presentation: Cephalic presentation Assessment and Plan Age: 25 : 3 Term: 1 Pre-term: 0 Abortions: 1 Livin Weeks & Days 40+2 Status: Reassuring Group B Streptococcus: Negative Anticipate: Vaginal Delivery Additional Comments As I was discussing her previous category II tracing with the patient, the tracing returned to Category I. She has made change of 1cm and is still in latent labor. I did discuss delivery for category II remote from delivery and the patient is aware of my previous concerns about the tracing. I did mention that our other means of induction is rupture of membranes which she is declining at this time. She indicated understanding. Will continue to monitor closely. The tracing is safe to proceed with vaginal delivery at this time. -routine intrapartum care -reevaluate labor in 4-6 hours or sooner as needed CAIO SANTANA DO Mar 04, 2021 21:11
[2021-03-04] MEDS ORDERED: LIDOCAINE 1% MDV 20ML VIAL As Ordered ONE (22:51)
[2021-03-04 23:05] LABS: CORD GAS ABE A -4.8; CORD GAS ABE V -2.4; CORD GAS HCO3 A 21.6 MEQ/L; CORD GAS O2 SAT A 43.1 %; CORD GAS O2 SAT V 40.1 %; CORD GAS PCO2 A 44.4 mmHg; CORD GAS PH A 7.304 UNITS; CORD GAS PH V 7.299 UNITS; CORD GAS PO2 A 19.6 mmHg; CORD GAS PO2 V 17.3 mmHg; CORD GAS SBC A 19.1 MEQ/L; CORD GAS SBC V 20.8 MEQ/L; CORD GAS TCO2 A 22.9 MEQ/L; CORD GAS TCO2 V 26.6 MEQ/L
[2021-03-04] MEDS ORDERED: OXYTOCIN 30 UNITS IN 0.9% NaCl 500ML IV BAG (J2590) As Ordered ONE (23:19)
--- NOTE | 2021-03-04 23:27 | DNPDOC ---
[facility] Delivery Note Delivery Note DATE OF DELIVERY: 04MAR2021 TIME: 2231 PREDELIVERY DIAGNOSIS: -40+2 weeks' gestation and labor -Chronic hypertension not on medications -Induction of labor for nonreassuring heart rate tracing in clinic POST DELIVERY DIAGNOSIS: Delivered. PROCEDURE: Spontaneous vaginal delivery HEALTH OFFICER: Mitchell Hendricks DO ANESTHESIA: none ESTIMATED BLOOD LOSS: 300 mL. FINDINGS: 7 pound 10 ounce 3470g male , Score 8/9, DELIVERY SUMMARY: Paged by nursing that patient was 8-9cm dilated. I directed the nurse to begin pushing when complete and I began to make my way to the Labor garduno. Upon arrival the had been delivered and was noted to be on the maternal chest with good cry. After one minute the cord was then clamped by me and cut by the father of the baby. With gentle cord traction the placenta then delivered intact. Inspection of the perineum revealed a 2nd degree midline laceration repaired with several [id number] stitches of 3-0 vicryl using 10mL of 1% lidocaine for local pain control. Hemostasis was noted. the uterus was noted to be firm at the fundus. All counts were correct. Mother and were in good condition when I left the room. DO MAX Nieto BRADLEY J. DO Mar 04, 2021 23:26
[2021-03-04] MEDS ORDERED: DIBUCAINE 1% OINTMENT 30GM TOP PRN (23:40)
[2021-03-04] MEDS ORDERED: LIDOCAINE 1% MDV 20ML VIAL INFIL ONE (23:40)
[2021-03-04] MEDS ORDERED: MEASLES,MUMPS,RUBELLA VACCINE INJ (MMR-II) (90707) SC SCH (23:40)
[2021-03-04] MEDS ORDERED: ACETAMINOPHEN 500 MG TAB PO SCH (23:40)
[2021-03-04] MEDS ORDERED: PROMETHAZINE 25 MG TAB PO PRN (23:40)
[2021-03-04] MEDS ORDERED: METHYLERGONOVINE MALEATE 0.2 MG TAB PO PRN (23:40)
[2021-03-04] MEDS ORDERED: ONDANSETRON 4MG/2ML VIAL IV PRN (23:40)
[2021-03-04] MEDS ORDERED: DOCUSATE SODIUM 100MG CAPSULE PO PRN (23:40)
[2021-03-04] MEDS ORDERED: RHOGAM 300 MCG (1500 IU) INJ (J2790) IM SCH (23:40)
[2021-03-05] VITALS: BP 115/71
[2021-03-05 00:14] VITALS: BP 123/70
[2021-03-05] MEDS: IBUPROFEN 800 MG TAB PO SCH ×3 (01:00→16:45)
[2021-03-05 01:10] VITALS: BP 118/62
--- NOTE | 2021-03-05 05:40 | IPNPDOC ---
Progress Note Date of Service: Mar 05, 2021 Day#: 1 Progress Note SUBJECT: Shea Hollis is a 25-year-old 2 now Para 2012 status post uncomplicated spontaneous vaginal delivery at 40+2 weeks' at approximately 2232 hours on 05MAR2021 of a male 7 pounds 10 ounces (3470 grams) with 2nd degree vaginal laceration and repair, doing well day #1. She has been ambulating, voiding spontaneously without issue and tolerating regular diet. Breast feeding without issue. Reports lochia is small. OBJECTIVE: VITAL SIGNS: Within normal limits, afebrile. Alert and oriented times three. Nonlabored breathing Heart rate: Regular rate Abdomen: Fundus firm at U-2. Soft, NTTP. Negative calf tenderness bilaterally ASSESSMENT: Shea Hollis is doing well on day 1. Vitals within normal limits, afebrile, hemodynamically stable with no evidence of infection. PLAN: 1. Discharge to home tomorrow. 2. Tylenol and Motrin for pain. 3. Encourage breast feeding and ambulation. 4. undecided for contraception 5. Routine PP visit in 6 weeks in clinic. VS, I&O, 24H, Fishbone Vital Signs/I&O Vital Signs Date Time Temp Pulse Resp B/P (MAP) Pulse Ox O2 Delivery O2 Flow Rate FiO2 03/05/21 01:10 98.3 72 16 118/62 (80) 98 Room Air I&O- Last 24 Hours up to 6 AM 03/05/21 06:00 Output Total 300 ml Balance -300 ml Laboratory Data 24H LABS Laboratory Tests 2 03/04/21 10:41: Serology Scanned Report Hepatitis B Testing 03/04/21 16:35: Nucleated Red Blood Cells % (auto) 0.0, Syphilis Serology NONREACTIVE, Coronavirus (COVID-19)(PCR) NEGATIVE 03/04/21 22:38: Cord Arterial Blood pH 7.304, Cord Arterial Blood PCO2 44.4, Cord Arterial Blood PO2 19.6, Cord Arterial Blood HCO3 21.6, Cord Arterial Blood Total CO2 22.9, Cord Arterial Blood Base Excess -4.8, Cord Arterial Base Excess (Standard 19.1, Cord Arterial Bld Oxygen Saturation 43.1, Cord Venous Blood pH 7.299, Cord Venous Blood PCO2 52.0, Cord Venous Blood PO2 17.3, Cord Venous Blood HCO3 25.0, Cord Venous Blood Total CO2 26.6, Cord Venous Base Excess (Actual) -2.4, Cord Venous Base Excess (Standard) 20.8, Cord Venous Blood Oxygen Saturation 40.1 CBC/BMP Laboratory Tests 03/04/21 16:35 CAIO SANTANA DO Mar 05, 2021 05:40
[2021-03-05 06:00] VITALS: BP 128/70
[2021-03-05] MEDS: ACETAMINOPHEN 500 MG TAB PO SCH ×4 (07:17→18:33)
[2021-03-05] MEDS: PRENATAL VITAMINS CHEWABLE TABLET PO SCH (07:17)
[2021-03-05 08:44] LABS: HEMATOCRIT 38.2 % (36.0-47.0); HEMOGLOBIN 13.5 g/dl (12.0-15.5); MEAN CORPUSCULAR HEMOGLOBIN 32.8 pg (27.0-33.0); MEAN CORPUSCULAR HGB CONC 35.3 g/dl (32.0-36.5); MEAN CORPUSCULAR VOLUME 92.9 fl (80.0-96.0); PLATELET COUNT, AUTOMATED 202 10^3/uL (150-450); RED BLOOD COUNT 4.11 10^6/uL (4.00-5.40); WHITE BLOOD COUNT 14.5 10^3/uL (4.0-10.0)
[2021-03-05] MEDS ORDERED: PRENATAL VITAMINS CHEWABLE TABLET PO SCH (09:00)
[2021-03-05 18:00] VITALS: BP 138/87
[2021-03-06] MEDS: ACETAMINOPHEN 500 MG TAB PO SCH (00:06)
[2021-03-06] MEDS: IBUPROFEN 800 MG TAB PO SCH ×2 (01:44→09:05)
[2021-03-06 06:20] VITALS: BP 123/63
--- NOTE | 2021-03-06 06:52 | OBDS ---
[facility] Obstetrical Discharge Sum. Obstetrical Discharge Summary Date: Mar 06, 2021 Time: 03:00 Term: 2 Pre-term: 0 Abortions: 1 Livin VDRL: Non-Reactive Rh: Negative Rubella: Immune Anesthesia: Local Anesthesia A/P, Post Course List any complications Admission diagnosis: PREDELIVERY DIAGNOSIS: -40+2 weeks' gestation and labor -Chronic hypertension not on medications -Induction of labor for nonreassuring heart rate tracing in clinic POST DELIVERY DIAGNOSIS: Delivered. PROCEDURE: Spontaneous vaginal delivery CRATING AND MOVING ESTIMATOR: Mitchell Hendricks, ANESTHESIA: none ESTIMATED BLOOD LOSS: 300 mL. FINDINGS: 7 pound 10 ounce 3470g male , Score 8/9, Discharge diagnosis: same as above Condition at Discharge: stable Discharge Instructions: Home Activity: Pelvic rest Diet: regular Medications: at [facility] Follow-up: 6wk pp Other: Depo provera for contraceptions TIFFANIE STERLING MD Mar 06, 2021 06:52
[2021-03-06] MEDS ORDERED: ACET-683 PO (06:54)
[2021-03-06] MEDS ORDERED: IBUP80TA PO (06:54)
[2021-03-06] MEDS: PRENATAL VITAMINS CHEWABLE TABLET PO SCH (09:04)
== END 2021-03-06 12:05 | disposition home or self-care (01) | DRG 806 ==
LOC: M LDO 09:24 → M LDI 10:29 → M OBS 03-05 01:06
PROVIDERS: ADMIT Obstetrics & Gynecology; ATTEND Obstetrics & Gynecology
PROC: 10E0XZZ Delivery of Products of Conception, External Approach (ICD-10-PCS; principal; 2021-03-04)
PROC: 0KQM0ZZ Repair Perineum Muscle, Open Approach (ICD-10-PCS; 2021-03-04)
DX: O76 Abnormality in fetal heart rate and rhythm complicating labor and delivery (principal); Z37.0 Single live birth; O10.02 Pre-existing essential hypertension complicating childbirth; O48.0 Post-term pregnancy; Z3A.40 40 weeks gestation of pregnancy; O70.1 Second degree perineal laceration during delivery

== ENCOUNTER → 2021-04-20 | Outpatient (CLI) | payer OTHER | LOC: M WHC 09:51 | PROVIDERS: ATTEND Advanced Practice Midwife | DX: R92.2 Inconclusive mammogram (principal) ==

== ENCOUNTER → 2021-05-22 | Outpatient (CLI) | payer OTHER ==
[~2021-05-22] MED LIST changes: +PROHANCE 279.3MG/ML 15ML VIAL As Ordered ONE
== END ==
LOC: M RAD 07:53
PROVIDERS: ATTEND Advanced Practice Midwife
DX: R92.8 Other abnormal and inconclusive findings on diagnostic imaging of breast (principal)
CPT/HCPCS: A9576; C8908

== ENCOUNTER → 2021-06-11 | Outpatient (CLI) | payer OTHER ==
[~2021-06-11] MED LIST changes: +**SFHN** LIDOCAINE 1% MDV 20ML VIAL ONE; +**SFHN** SODIUM BICARBONATE 8.4% 50MEQ 50ML VIAL ONE; -PROHANCE 279.3MG/ML 15ML VIAL As Ordered ONE
[2021-06-11 09:44] VITALS: BP 118/72
== END ==
LOC: M WHCPRO 08:30
PROVIDERS: ATTEND Advanced Practice Midwife
DX: R92.8 Other abnormal and inconclusive findings on diagnostic imaging of breast (principal)

== ENCOUNTER → 2021-06-11 | Outpatient (CLI) | payer OTHER ==
[~2021-06-11] MED LIST changes: -**SFHN** LIDOCAINE 1% MDV 20ML VIAL ONE; -**SFHN** SODIUM BICARBONATE 8.4% 50MEQ 50ML VIAL ONE
== END ==
LOC: M WHC 08:36
PROVIDERS: ATTEND Advanced Practice Midwife
DX: I89.0 Lymphedema, not elsewhere classified (principal)